=== PATIENT | male | born 1935 | race American Indian/Alaskan Native ===

== ENCOUNTER 2017-09-26 08:01 | Emergency (ER) | payer MEDICARE, MEDICAID ==
[2017-09-26 08:02] VITALS: BMI 27.5
[2017-09-26 08:09] VITALS: PULSE 63; RESP 18; O2SAT 97
[2017-09-26 09:06] LABS: BASO # 0.1 K/uL (0.0-0.2); BASO % 1.1 % (0.0-2.0); EOS # 0.3 K/uL (0.0-0.7); EOS % 4.2 % (0.0-4.0); HEMOGLOBIN 12.8 g/dL (12.0-18.0); LYMPH # 2.2 K/uL (1.0-4.3); LYMPH % 33.2 % (20.0-40.0); MEAN CELL VOLUME 84.6 fL (80.0-94.0); MEAN CORPUSCULAR HEMOGLOBIN 28.6 pg (27.0-31.0); MEAN CORPUSCULAR HGB CONC 33.8 g/dL (33.0-37.0); MEAN PLATELET VOLUME 7.7 fL (7.2-11.7); MONO # 0.6 K/uL (0.0-0.8); MONO % 8.9 % (0.0-10.0); NEUT # 3.5 K/uL (1.8-7.0); NEUT % 52.6 % (50.0-75.0); NRBC % 0.1 % (0.0-2.0); RBC 4.49 Mil/uL (4.40-5.90); RED CELL DISTRIBUTION WIDTH 14.9 % (11.5-14.5); WHITE BLOOD COUNT 6.6 K/uL (4.8-10.8)
[2017-09-26 09:19] LABS: ALB/GLOB RATIO 1.1 (1.0-2.1); ALBUMIN 3.7 g/dL (3.5-5.0); ALT/SGPT 9 U/L (21-72); AST/SGOT 24 U/L (17-59); BLOOD UREA NITROGEN 11 mg/dL (9-20); CALCIUM 8.9 mg/dl (8.6-10.4); GFR AFRICAN-AMERICAN > 60; GFR NON-AFRICAN AMERICAN > 60
[2017-09-26 09:33] LABS: SQUAMOUS EPITHIAL 1 /hpf (0-5); URINE AMORPHOUS SEDIMENT RARE /ul (<OCC); URINE BILIRUBIN NEGATIVE (NEGATIVE); URINE BLOOD NEGATIVE (NEGATIVE); URINE CLARITY Hazy (Clear); URINE COLOR Yellow (YELLOW); URINE GLUCOSE (UA) NORMAL (Normal); URINE LEUKOCYTE ESTERASE NEG Leu/uL (Negative); URINE PROTEIN NEGATIVE (NEGATIVE)
[2017-09-26 09:40] VITALS: BP 152/98; TEMP 98.2
--- NOTE | 2017-09-26 09:41 | C.PDOC ---
History Of Present Illness 81-year-old, PMHx includes benign prostatic hyperplasia, is sent to the emergency department from care home for evaluation of abnormal labs. Patient is a poor historian and all other Hx is limited. Time Seen by Provider: 09/26/17 08:27 Chief Complaint (Nursing): Male Genitourinary History/Exam Limitations: clinical condition Past Medical History Reviewed: Historical Data, Nursing Documentation, Vital Signs Vital Signs: Last Vital Signs Temp 98.2 F 09/26/17 09:40 Pulse 63 09/26/17 08:05 Resp 18 09/26/17 09:40 BP 152/98 H 09/26/17 09:40 Pulse Ox 97 09/26/17 12:58 - Medical History PMH: Benign Prostatic Hyperplasia, Dementia (EARLY ONSET DEMENTIA), HTN, Hypercholesterolemia, Peripheral Edema (left foot +1), TIA (09/14-TIA and 07/2014) Denies: Chronic Kidney Disease Surgical History: Coronary Stent (2011) - [facility] Procedures DX ULTRASOUND NEC (09/27/14) PERCUTAN NEEDLE BIOPSY OF PROSTATE (09/27/14) VACCINATION NEC (10/28/14) Family History: States: No Known Family Hx - Social History Hx Tobacco Use: No Hx Alcohol Use: No Hx Substance Use: No - Immunization History Hx Tetanus Toxoid Vaccination: No Hx Influenza Vaccination: No Hx Pneumococcal Vaccination: No Review Of Systems Review Of Systems: ROS cannot be obtained secondary to pt's inabilty to answer questions. Physical Exam - Physical Exam Appears: Non-toxic, No Acute Distress Skin: Warm, Dry, No Rash Head: Normacephalic Eye(s): bilateral: PERRL Nose: Normal Oral Mucosa: Moist Lips: Normal Appearing Neck: Normal ROM Cardiovascular: Rhythm Regular, No Murmur Respiratory: Normal Breath Sounds, No Accessory Muscle Use Gastrointestinal/Abdominal: Soft, No Tenderness, No Guarding Extremity: Normal ROM, No Deformity, No Swelling ED Course And Treatment - Laboratory Results Result Diagrams: 09/26/17 09:01 09/26/17 09:01 O2 Sat by Pulse Oximetry: 97 Medical Decision Making Medical Decision Making: Plan: * Labs * Urine Culture * UA * Reassess and Disposition Patient evaluated by Dr Escobedo in ED. Disposition Discussed With .: Daphne Escobedo Doctor Will See Patient In The: ED Counseled Patient/Family Regarding: Studies Performed, Diagnosis, Need For Followup - Disposition Disposition: TRANSF TO SNF Disposition Time: 09:40 Condition: STABLE Additional Instructions: follow up with Dr. Escobedo in 2 days return to ER if symptoms worsens or progress continue home medications as prescribed Instructions: Prostate Cancer Forms: [facility] (Pashto), General Discharge Instructions - Clinical Impression Clinical Impression: Prostate cancer - Scribe Statement The provider has reviewed the documentation as recorded by the Scribe (Henrietta Juarez) All medical record entries made by the Scribe were at my direction and personally dictated by me. I have reviewed the chart and agree that the record accurately reflects my personal performance of the history, physical exam, medical decision making, and the department course for this patient. I have also personally directed, reviewed, and agree with the discharge instructions and disposition.
--- NOTE | 2017-09-28 17:24 | CON ---
DATE: Urology consultation is provided by Dr. Daphne Escobedo. REASON FOR CONSULTATION: History of prostate cancer. The patient is an 81-year-old male with prostate cancer. The patient is in otherwise fair health. The patient is a resident of a custodial. The patient has history of previously diagnosed prostate cancer. He has history of high-grade prostate cancer. The patient was treated with androgen deprivation therapy and radiotherapy. The patient had recurrent disease following his treatment. Thereafter, the patient was started on insulin deprivation therapy with Lupron. The patient reports no pain. He reports no abdominal pain. No flank pain. The patient has good appetite. No recent weight loss. No nausea or vomiting. The patient reports good urinary stream, good control. No hematuria. No dysuria. No flank pain. No recent fever or rigors. The patient has good appetite. The patient reports no chest pain. No dyspnea. The patient has limited activity. He uses a wheelchair. The patient is a resident of the [facility]. PHYSICAL EXAMINATION: GENERAL: The patient is a well-developed, well-nourished elderly male. The patient is awake and alert. The patient is oriented to person. ABDOMEN: Soft, nontender, nondistended. No mass or organomegaly. BACK: No CVA tenderness. GENITALIA: Without inflammation. RECTAL EXAMINATION: Normal sphincter tone. Prostate supple and smooth without fixation, induration, or nodularity. Prostate is approximately 25 gm in size with. There is no tenderness or fluctuance over the prostate. Chemistries and CBC are reviewed. PSA is pending. IMPRESSION: History of radio recurrent prostate cancer. The patient is now doing well clinically on androgen deprivation therapy with Lupron. RECOMMENDATIONS AND PLAN: Continue Lupron therapy. PSA is pending. Further therapy to follow according to the patient's clinical course. Urinalysis. Urine culture. Thank you for recommending the patient for Urology consultation. Daphne Escobedo MD cc: [facility]
== END 2017-09-26 12:08 ==
LOC: C.ER 08:01
DX: C61 Malignant neoplasm of prostate (principal)